=== PATIENT | male | born 1985 | race Caucasian/White ===

== ENCOUNTER 2017-02-18 22:27 | Emergency (ER) | payer OTHER ==
[2017-02-18 22:53] VITALS: RESP 16
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
[2017-02-19 00:05] VITALS: BP 124/72; PULSE 62; TEMP 98.2; O2SAT 96
== END 2017-02-19 00:05 | disposition home or self-care (01) ==
DX: S00.83XA Contusion of other part of head, initial encounter (principal); S03.40XA Sprain of jaw, unspecified side, initial encounter; W22.8XXA Striking against or struck by other objects, initial encounter; Y99.8 Other external cause status; Y93.39 Activity, other involving climbing, rappelling and jumping off